=== PATIENT | female | born 1945 | race Caucasian/White ===

== ENCOUNTER 2019-06-19 14:53 | Emergency (ER) | payer OTHER ==
[2019-06-19] MEDS ORDERED: ALUM & MAG HYDROX-SIMETHICONE 30 ML, LIDOCAINE VISCOUS 2% 15 ML PO ONE ×2 (15:24)
[2019-06-19] MEDS ORDERED: PANTOPRAZOLE SODIUM IV 40 MG VIAL IV ONE (15:24)
--- NOTE | 2019-06-19 15:40 | ED.PDOC ---
History of Present Illness - General Chief Complaint: Abdominal Pain Time Seen by Provider: 06/19/19 15:03 Information Source: patient Additional Information: 74yo F presents with upper abdominal pain for 3 days. The patient states she has hx of stomach ulcers and gastritis and todays pain feels similar. Associated symptoms include bloating and dark stool. Pt notes dark stool for the past 2 days. There is no associated fever or vomiting. No other reported issues. - History of Present Illness Abdominal Pain Onset Location: epigastric Quality: mild Worsening Factors: eating Review of Systems - Review of Systems Constitutional: Denies: chills, fever EENTM: States: no symptoms reported Respiratory: Denies: cough, short of breath, wheezing Cardiology: Denies: chest pain, edema, palpitations Gastrointestinal/Abdominal: States: abdominal pain, other - Dark stools. Denies: diarrhea, nausea, vomiting Genitourinary: Denies: dysuria, frequency, hematuria Musculoskeletal: Denies: back pain, muscle pain Skin: Denies: change in color, rash Neurological: Denies: headache, numbness, weakness Endocrine: States: no symptoms reported Hematologic/Lymphatic: States: no symptoms reported Family Medical History - Family History Mother Family History: No Known Physical Exam - Physical Exam General Appearance: Alert, Comfortable Eyes, Ears, Nose, Throat Exam: PERRL/EOMI, normal ENT inspection Neck: non-tender, full range of motion, supple Respiratory: chest non-tender, lungs clear, normal breath sounds, no respiratory distress Cardiovascular/Chest: regular rate, rhythm, no edema Peripheral Pulses: No deficit Gastrointestinal/Abdominal: soft, no organomegaly, other - Mild epigastric and LUQ discomfort, no rebound or guarding Back Exam: normal inspection, no CVA tenderness Extremity: normal range of motion, non-tender Neurologic: no motor/sensory deficits, alert, normal mood/affect, oriented x 3 Skin Exam: normal color, warm/dry Progress - Progress Progress: 06/19/19 15:42 DDX: Ulcer, gastritis, GI bleed, pancreatitis, colitis, diverticulitis, SBO, liver disorder, renal failure, anemia. Darrion Kingsley MD. #[id number] 06/19/19 21:42 The patient has had no bloody stool in the ED. Hgb is 12. No acute CT findings. Discussed options for care including discharge with return instructions, observation in the hospital or consideration of transfer. The patient is presently pain free and feels well. She strongly prefers discharge. If symptoms remain mild she plans to return to her home in [place] and follow up with her physician. She will return with any worsening symptoms including SOB, fatigue and worse stools. Result and findings were discussed with the patient. The patient is comfortable with the plan for discharge with close outpatient follow up at this time. We discussed pathways for follow up and that failure to follow up could result in poor outcome. We reviewed reasons for immediate return including new and worsening symptoms. All questions answered. It was a pleasure to care for this patient today. - Results/Orders Results/Orders: Laboratory Results - last 24 hr 06/19/19 06/19/19 06/19/19 15:22 15:23 15:24 WBC 6.7 RBC 4.62 Hgb 12.7 Hct 37.9 MCV 82.0 MCH 27.5 MCHC 33.5 RDW 13.7 Plt Count 248 MPV 7.8 Absolute Neuts (auto) 4.20 Absolute Lymphs (auto) 1.80 Absolute Monos (auto) 0.50 Absolute Eos (auto) 0.10 Absolute Basos (auto) 0.00 Neutrophils % 62.0 Lymphocytes % 27.3 Monocytes % 8.0 Eosinophils % 2.0 Basophils % 0.7 Sodium 133 L Potassium 3.9 Chloride 101 Carbon Dioxide 25 Anion Gap 10.9 L BUN 18 Creatinine 0.70 BUN/Creatinine Ratio 25.7 H Random Glucose 167 H Serum Osmolality 272.1 L Lactic Acid Calcium 9.2 Total Bilirubin 0.4 AST 21 ALT 19 Alkaline Phosphatase 84 Serum Total Protein 7.5 Albumin 4.0 Globulin 3.5 Albumin/Globulin Ratio 1.1 Lipase 33 Stool Occult Blood 06/19/19 06/19/19 15:24 17:05 WBC RBC Hgb Hct MCV MCH MCHC RDW Plt Count MPV Absolute Neuts (auto) Absolute Lymphs (auto) Absolute Monos (auto) Absolute Eos (auto) Absolute Basos (auto) Neutrophils % Lymphocytes % Monocytes % Eosinophils % Basophils % Sodium Potassium Chloride Carbon Dioxide Anion Gap BUN Creatinine BUN/Creatinine Ratio Random Glucose Serum Osmolality Lactic Acid 1.6 Calcium Total Bilirubin AST ALT Alkaline Phosphatase Serum Total Protein Albumin Globulin Albumin/Globulin Ratio Lipase Stool Occult Blood Positive Last Vital Signs Temp 97.8 F 06/19/19 18:54 Pulse 68 06/19/19 18:54 Resp 18 06/19/19 18:54 BP 155/78 06/19/19 18:54 Pulse Ox 94 L 06/19/19 18:54 - EKG/XRAY/CT CT: Abd/Pelv: Diverticulosis. No acute findings. See read. Departure - Departure Clinical Impression: Dark stools, Diverticulosis, Renal cyst Time of Disposition: 18:20 Disposition: Discharge to Home or Self Care Condition: Fair Departure Forms: ED Discharge - Pt. Copy, Patient Portal Self Enrollment Instructions: DI for Abdominal Pain-Adult, Gastrointestinal Bleeding (DC) Referrals: Eros Orozco MD [Primary Care Provider] - 1-2 Weeks Prescriptions: Sucralfate Tab [Carafate Tab] 1 gm PO ACHS 14 Days tablet Home Medications: Ambulatory Orders Amlodipine Besylate [Norvasc] 2.5 mg PO DAILY 06/19/19 Glipizide 5 mg PO DAILY 06/19/19 Lorazepam 0.5 mg PO BEDTIME 06/19/19 Omeprazole Magnesium [Prilosec Otc] 20 mg PO DAILY 06/19/19 Sucralfate Tab [Carafate Tab] 1 gm PO ACHS 14 Days tablet 06/19/19 Additional Instructions: Return to the ED immediately for worsening symptoms including increased dark stools, worsening fatigue, shortness or breath or any other concerns. We r ecommend you follow up closely with a pattern generator operator.
[2019-06-19] MEDS ORDERED: LIDOCAINE HCL 2% (MOUTH-THROAT) 15 ML UD ONE (15:46)
[2019-06-19] MEDS ORDERED: ALUM & MAG HYDROX-SIMETHICONE 30 ML UD ONE (15:46)
--- NOTE | 2019-06-19 17:18 | CT ---
EXAM DESCRIPTION: CT Abdomen/Pelvis w/o Contrast CLINICAL HISTORY: 74 years Female Left flank pain COMPARISON: None TECHNIQUE: Noncontrast axial scans of the abdomen and pelvis were obtained. The lack of any contrast administration limits evaluation of certain areas. This exam was performed according to our departmental dose-optimization program, which includes automated exposure control, adjustment of the mA and/or kV according to patient size and/or use of iterative reconstruction technique. FINDINGS: The lung bases are unremarkable except for slight subsegmental atelectasis or scarring bilaterally. The gallbladder is present. The pancreas is relatively small. The liver, spleen, adrenal glands, and left kidney appear unremarkable, within technical limitations of the study. The right kidney appears unremarkable except for a small low density lesion at the lateral margin of the mid to upper portion, measuring about 1.5 cm and most likely due to a cyst. No gross biliary dilatation, urinary tract calculus, obstructive uropathy, ascites, or significant para-aortic lymph node enlargement is identified. Small nonspecific nodes are seen near the body and tail of the pancreas. Aorto iliac and other vascular calcifications are noted, with no evidence of abdominal aortic aneurysm. There is a small fat-containing umbilical hernia. No obvious abnormal masses or fluid collections are seen in the pelvis. The uterus is identified. The bladder is unremarkable as visualized. Small calcified pelvic phleboliths are noted. There are several diverticula in the sigmoid colon, with no evidence of diverticulitis, bowel obstruction, pneumoperitoneum, or appendicitis. Opaque densities are noted in the cecum and proximal ascending colon, presumably due to ingested material. There are scattered degenerative changes in the spine. IMPRESSION: 1. No evidence of urinary tract calculus or obstruction. 2. Sigmoid diverticulosis. 3. Other minor and nonspecific findings and chronic changes as described above. Electronically signed by: Kirt Allen MD 06/19/2019 5:17 PM CDT
[2019-06-19 18:56] VITALS: BP 155/78; TEMP 97.8; O2SAT 94
== END 2019-06-19 18:57 | disposition home or self-care (01) ==
LOC: ER 14:53
DX: K57.90 Diverticulosis of intestine, part unspecified, without perforation or abscess without bleeding (principal); R19.5 Other fecal abnormalities; N28.1 Cyst of kidney, acquired